=== PATIENT | female | born 1985 | race Hispanic/Latino ===

== ENCOUNTER 2018-07-14 08:41 | Inpatient (IN) | payer OTHER ==
--- OUTSIDE RECORDS SUMMARY | 2018-07-14 08:44 | XMS REPORT ---
:1985 Author Organization eClinicalWorks Care Team Providers Name Role Phone Henrry Levin Provider Role Unavailable Allergies, Adverse Reactions, Alerts Substance Reaction Event Type N.K.D.A. Info Not Available Non Drug Allergy Problems Problem Type Condition Code Onset Dates Condition Status Problem Obesity (BMI 30.0-34.9) E66.9 Active Problem Fertility testing Z31.41 Active Problem Well woman exam with routine Z01.419 Active gynecological exam Assessment Fertility testing Z31.41 Active Assessment Well woman exam with routine Z01.419 Active gynecological exam Assessment Obesity (BMI 30.0-34.9) E66.9 Active Medications Medication Code System Code Instructions Start Date End Date Status Dosage Clonazepam [facility] [id number] 1 MG Orally Once Active 1 tablet a day Results No Known Results Summary Purpose eClinicalWorks Submission
--- OUTSIDE RECORDS SUMMARY | 2018-07-14 08:44 | XMS REPORT ---
:1985 Author Organization eClinicalWorks Care Team Providers Name Role Phone Henrry Levin Provider Role Unavailable Allergies No Known Allergies Problems Problem Type Condition Code Onset Dates Condition Status Problem Obesity (BMI 30.0-34.9) E66.9 Active Problem Fertility testing Z31.41 Active Problem Well woman exam with routine Z01.419 Active gynecological exam Assessment Meconium aspiration in child of O09.292 Active prior , currently in second trimester Assessment Obesity affecting in O99.212 Active second trimester Assessment Supervision of high risk O09.92 Active in second trimester Assessment Low lying placenta NOS or without O44.42 Active hemorrhage, second trimester Problem Supervision of high risk O09.92 Active in second trimester Problem Obesity affecting in O99.212 Active second trimester Problem Low lying placenta NOS or without O44.42 Active hemorrhage, second trimester Problem BMI 31.0-31.9,adult Z68.31 Active Problem Encounter for supervision of Z34.91 Active low-risk in first trimester Problem Meconium aspiration in child of O09.292 Active prior , currently in second trimester Problem Encounter to determine O36.80X0 Active viability of , single or unspecified fetus Medications Medication Code Code Instructions Start End Status Dosage System Date Date CitraNatal [facility] 70609738120 35-1 & 300 MG Active as directed Assure Orally daily ND 27756554218 14-0.4 MG Orally Active 1 tablet Complete Once a day Results No Known Results Summary Purpose eClinicalWorks Submission
--- OUTSIDE RECORDS SUMMARY | 2018-07-14 08:44 | XMS REPORT ---
:1985 Author Organization eClinicalWorks Care Team Providers Name Role Phone Henrry Levin Provider Role Unavailable Allergies, Adverse Reactions, Alerts Substance Reaction Event Type N.K.D.A. Info Not Available Non Drug Allergy Problems Problem Type Condition Code Onset Dates Condition Status Assessment Encounter to determine O36.80X0 Active viability of , single or unspecified fetus Assessment Amenorrhea N91.2 Active Assessment Encounter for supervision of Z34.91 Active low-risk in first trimester Assessment BMI 31.0-31.9,adult Z68.31 Active Problem Encounter for supervision of Z34.91 Active low-risk in first trimester Problem Encounter to determine O36.80X0 Active viability of , single or unspecified fetus Problem BMI 31.0-31.9,adult Z68.31 Active Problem Obesity (BMI 30.0-34.9) E66.9 Active Problem Fertility testing Z31.41 Active Problem Well woman exam with routine Z01.419 Active gynecological exam Medications Medication Code System Code Instructions Start Date End Date Status Dosage Clonazepam [facility] [id number] 1 MG Orally Once Active 1 tablet a day Results Name Result Date Reference Range Unit Abnormality Flag URINALYSIS AUTO W/O SCOPE (47356) ----NIT neg 20171218 ----URO 0.2 20171218 ----PROTEIN 2+ 20171218 ----pH 5.5 20171218 ----BLO neg 20171218 ----GLUCOSE neg 20171218 ----JESSE TRACE 20171218 ----BILIRUBIN 1+ 20171218 ----KETONES neg 20171218 ----SPECIFIC GRAVITY 1.030 20171218 Summary Purpose eClinicalWorks Submission
--- OUTSIDE RECORDS SUMMARY | 2018-07-14 08:44 | XMS REPORT ---
[...] End Status Dosage System Date Date CitraNatal [facility] 80358678720 35-1 & 300 MG Active as directed Assure Orally daily ND 63507077618 14-0.4 MG Orally Active 1 tablet Complete Once a day Results No Known Results Summary Purpose eClinicalWorks Submission
--- OUTSIDE RECORDS SUMMARY | 2018-07-14 08:44 | XMS REPORT ---
:1985 Author Organization eClinicalWorks Care Team Providers Name Role Phone Henrry Levin Provider Role Unavailable Allergies No Known Allergies Problems Problem Type Condition Code Onset Dates Condition Status Problem Obesity (BMI 30.0-34.9) E66.9 Active Problem Fertility testing Z31.41 Active Problem Well woman exam with routine Z01.419 Active gynecological exam Problem Supervision of high risk O09.92 Active [...] of , single or unspecified fetus Medications No Known Medications Results No Known Results Summary Purpose better.inicalApropose Submission
--- OUTSIDE RECORDS SUMMARY | 2018-07-14 08:45 | XMS REPORT ---
:1985 Author Organization eClinicalWorks Care Team Providers Name Role Phone Henrry Levin Provider Role Unavailable Allergies No Known Allergies Problems Problem Type Condition Code Onset Dates Condition Status Problem Encounter to determine O36.80X0 Active viability of , single or unspecified fetus Problem BMI 31.0-31.9,adult Z68.31 Active Problem Encounter for supervision of Z34.91 Active low-risk in first trimester Problem Abnormal glucose affecting O99.810 Active Problem Supervision of high risk O09.93 Active in third trimester Problem Need for Tdap vaccination Z23 Active Problem Supervision of high risk O09.92 Active in second trimester Problem Obesity affecting in O99.212 Active second trimester Problem Low lying placenta NOS or without O44.42 Active hemorrhage, second trimester Problem Meconium aspiration in child of O09.292 Active prior , currently in second trimester Problem Obesity (BMI 30.0-34.9) E66.9 Active Problem Fertility testing Z31.41 Active Assessment Supervision of high risk O09.93 Active in third trimester Problem Well woman exam with routine Z01.419 Active gynecological exam Medications Medication Code Code Instructions Start End Status Dosage System Date Date [facility] 06058255415 14-0.4 MG Orally Active 1 tablet Complete Once a day CitraNatal [facility] 31026456472 35-1 & 300 MG Active as directed Assure Orally daily Results No Known Results Summary Purpose eClinicalWorks Submission
--- OUTSIDE RECORDS SUMMARY | 2018-07-14 08:45 | XMS REPORT ---
:1985 Author Organization eClinicalWorks Care Team Providers Name Role Phone Henrry Levin Provider Role Unavailable Allergies No Known Allergies Problems Problem Type Condition Code Onset Dates Condition Status Problem Obesity (BMI 30.0-34.9) E66.9 Active Problem Fertility testing Z31.41 Active Problem Well woman exam with routine Z01.419 Active gynecological exam Assessment Supervision of high risk O09.92 Active in second trimester Assessment Abnormal glucose tolerance test R73.09 Active (GTT) Problem Supervision of high risk O09.92 Active [...] Medications Results No Known Results Summary Purpose eClinicalWorks Submission
--- OUTSIDE RECORDS SUMMARY | 2018-07-14 08:45 | XMS REPORT ---
[...] Z34.91 Active low-risk in first trimester Problem Obesity (BMI 30.0-34.9) E66.9 Active Problem Fertility testing Z31.41 Active Problem Well woman exam with routine Z01.419 Active gynecological exam Problem Abnormal glucose affecting O99.810 Active Problem [...] Active prior , currently in second trimester Medications No Known Medications Results No Known Results Summary Purpose eClinicalWorks Submission
--- OUTSIDE RECORDS SUMMARY | 2018-07-14 08:45 | XMS REPORT ---
:1985 Author Organization eClinicalWorks Care Team Providers Name Role Phone Henrry Levni Provider Role Unavailable Allergies No Known Allergies [...]
--- OUTSIDE RECORDS SUMMARY | 2018-07-14 08:45 | XMS REPORT ---
[...] prior , currently in second trimester Assessment Need for Tdap vaccination Z23 Active Problem Obesity (BMI 30.0-34.9) E66.9 Active Assessment Abnormal glucose affecting O99.810 Active Problem Fertility testing Z31.41 Active Assessment Supervision of high risk O09.93 Active in third trimester Problem Well woman exam with routine Z01.419 Active gynecological exam Medications Medication Code Code Instructions Start End Status Dosage System Date Date [facility] 50182455123 14-0.4 MG Orally Active 1 tablet Complete Once a day CitraNatal [facility] 72360629252 35-1 & 300 MG Active as directed Assure Orally daily Results No Known Results Immunizations Vaccine Administration Date TDAP > 7 Years-Adacel May 15, 2018 Summary Purpose eClinicalWorks Submission
--- OUTSIDE RECORDS SUMMARY | 2018-07-14 08:45 | XMS REPORT ---
[...] trimester Problem Obesity (BMI 30.0-34.9) E66.9 Active Assessment Abnormal glucose affecting O99.810 Active Problem Fertility testing Z31.41 Active Assessment Supervision of high risk O09.93 Active in third trimester Problem Well woman exam with routine Z01.419 Active gynecological exam Medications Medication Code Code Instructions Start End Status Dosage System Date Date CitraNatal [facility] 17055899778 35-1 & 300 MG Active as directed Assure Orally daily [facility] 66218282960 14-0.4 MG Orally Active 1 tablet Complete Once a day Results No Known Results Summary Purpose eClinicalWorks Submission
--- OUTSIDE RECORDS SUMMARY | 2018-07-14 08:45 | XMS REPORT ---
[...] End Status Dosage System Date Date CitraNatal [facility] 62876942845 35-1 & 300 MG Active as directed Assure Orally daily [facility] 34934309013 14-0.4 MG Orally Active 1 tablet Complete Once a day Results No Known Results Summary Purpose eClinicalWorks Submission
[2018-07-14 09:07] VITALS: BMI 31.1
[2018-07-14] MEDS ORDERED: CARBOPROST TROME 250 MCG/ML IM PRN (09:32)
[2018-07-14] MEDS ORDERED: METHYLERGONOVINE 0.2MG/ML AMP IM PRN (09:32)
[2018-07-14] MEDS ORDERED: BUTORPHANOL 1 MG/ML INJ IV PRN (09:32)
[2018-07-14] MEDS ORDERED: Ringers Lactate 1,000 ML IV PRN (09:32)
[2018-07-14] MEDS ORDERED: PROMETHAZINE 25 MG/ML VIAL IV PRN ×2 (09:32)
[2018-07-14] MEDS ORDERED: Ringers Lactate 1,000 ML IV SCH (10:00)
[2018-07-14] MEDS ORDERED: OXYTOCIN/LR 20 UNIT/1,000 ML BAG IV SCH (10:00)
[2018-07-14 10:01] LABS: RPR Titer ND
[2018-07-14 10:03] LABS: Absolute Monocytes 0.4 K/uL (0.1-1.3); Basophils % 0.6 % (0-1.3); Eosinophils % 1.1 % (0-4.4); Hematocrit 35.3 % (36.0-45.0); MPV 8.9 fL (7.6-11.3); Monocytes % 3.8 % (3.3-12.3); RBC Red Blood Cell Count 4.19 M/uL (3.86-4.86)
[2018-07-14 10:09] LABS: Urine Appearance CLEAR; Urine Bilirubin NEGATIVE (NEG); Urine Blood NEGATIVE (NEG); Urine Color YELLOW; Urine Glucose NEGATIVE (NEG); Urine Protein TRACE (NEG); Urine Specific Gravity 1.025 (1.005-1.030); Urine Urobilinogen 0.2 mg/dL (0.2-1.0); Urine pH 5.5 (5.0-7.0)
[2018-07-14 10:24] LABS: Urine Microscopic Reflex ORDER UMIC
[2018-07-14 11:03] LABS: Urine Bacteria 20-50 /HPF (<20); Urine Culture Reflex Order REFLEXED; Urine Mucus 2+ /HPF (NONE SEEN)
[2018-07-14] MEDS ORDERED: METHYLERGONOVINE 0.2 MG TAB PO ONE (11:11)
[2018-07-14] MEDS ORDERED: ROPIVACAINE HCL 100 ML IV PRN (15:32)
[2018-07-14] MEDS ORDERED: ROPIVACAINE HCL 0.2% 20ML AMP IV ONE (15:34)
[2018-07-14] MEDS ORDERED: FENTANYL CITR 100 MCG/2 ML IV ONE (15:34)
--- NOTE | 2018-07-14 17:10 | P.OBGYNHP ---
Certification for Inpatient Patient admitted to: Inpatient With expected LOS: >2 Midnights Patient will require the following post-hospital care: None Practitioner: I am a practitioner with admitting privileges, knowledge of patient current condition, hospital course, and medical plan of care. Services: Services provided to patient in accordance with Admission requirements found in Title 42 Section 412.3 of the Code of Federal Regulations Patient History Date of Service: 07/14/18 Reason for admission: Spontaneous rupture of membranes History of Present Illness: Patient is a 33-year-old 2 para 1001 who presents at 38 weeks and 1 day gestation with spontaneous rupture membranes. Patient experienced rupture of membranes while at home this morning 7:15 a.m.. Patient had a gush of clear fluid. She denies contractions. No vaginal bleeding. Reports good movements. She has obtained care with [place] beginning at 9 weeks gestation. care has been complicated by obesity. She had a visit with the during for which in a ultrasound was performed and no issues were noted. Her last ultrasound was done here presents port with appropriate growth and no issues noted. She had noninvasive testing done which revealed low risk female fetus. She had an elevated 1 hr glucose screen for which a 3 hr was then performed and that was normal. See record for further details. Allergies Hydrocodone-Acetaminophen Adverse Reaction (Intermediate, Uncoded 07/14/18 12:53 ) Unknown Home Medications: Pnv Cmb#95/Ferrous Fumarate/FA [ Tablet] 1 each PO DAILY 07/14/18 - Past Medical/Surgical History Has patient received pneumonia vaccine in the past: No Diabetic: No Past Medical History: Patient denies medical history -: Vaginal delivery 2008 - Family History Mother -: Hypertension - Social History Smoking Status: Never smoker Alcohol use: No CD- Drugs: No Caffeine use: Yes Place of Residence: Home Review of Systems 10-point ROS is otherwise unremarkable Physical Examination - Vital Signs Temperature: 97.6 F Blood Pressure: 140/88 Pulse: 80 Respirations: 18 - General General: Alert, Oriented x3 HEENT: Atraumatic Neck: Supple Respiratory: Normal air movement Cardiovascular: No edema, Normal pulses Capillary refill: <2 Seconds Gastrointestinal: Other (Gravid) Musculoskeletal: No clubbing, No swelling Integumentary: No rashes, No breakdown Neurological: Normal gait, Normal speech - Female Pelvic Vagina: Normal, [place], Moist Cervix: Dilation (1 cm), Effacement (Long), station (-3) Uterus: Gravid Adnexa: Unable to evaluate - Obstetrics heart rate tracing: Category 2 Contractions: Frequency (Irregular) Amniotic membrane: SROM (Clear fluid) Laboratory Data (last 24 hrs) 07/14/18 09:45: WBC 10.6, Hgb 11.9 L, Hct 35.3 L, Plt Count 227 Assessment and Plan - Plan Caps patient is a 33-year-old 2 para 1001 who presents at 38 weeks and 1 day gestation with spontaneous rupture of membranes. Pitocin has been started for labor augmentation. Continuous maternal monitoring is being performed. Epidural placement at patient's request. Anticipate vaginal . GBS negative. Discharge Plan: Home Plan to discharge in: 72 Hours - Advance Directives Does patient have a Living Will: No Does patient have a Durable POA for Healthcare: No
[2018-07-14] MEDS ORDERED: DOCUSATE NA/SENNA CONC 1 TAB PO PRN (19:33)
[2018-07-14] MEDS ORDERED: Oxycodone HCl/Acetaminophen 1 TAB TAB PO PRN (19:33)
[2018-07-14] MEDS ORDERED: ONDANSETRON 4 MG (ODT) TAB PO PRN (19:33)
[2018-07-14] MEDS ORDERED: BISACODYL 10 MG RECTAL SUPP RECT PRN (19:33)
[2018-07-14] MEDS ORDERED: METHYLERGONOVINE 0.2 MG TAB PO PRN (19:33)
[2018-07-14] MEDS ORDERED: ACETAMINOPHEN 500 MG TAB PO PRN (19:33)
--- NOTE | 2018-07-14 19:39 | P.OP ---
Date of Service: 07/14/18 Findings and Operative Technique Patient delivered a viable female in cephalic presentation on 07/14/18 at _19:15. No nuchal cord. Infant was delivered in BRANDON position. Once was delivered the nose and mouth were suctioned with a suction bulb. Cord was clamped and cut. Infant was placed on the mother's abdomen for skin to skin bonding. Cord blood was then obtained. Placenta was then delivered with gentle traction. Placenta was examined and noted to be intact. Attention was then turned to the perineum which was n oted to have a superficial laceration at the introitus. This was repaired with a 3.0 vicryl in a simple stitch. Following delivery both mom and baby are doing well. APGARS are __9/9_. Weight was found to be __6lb 12 ounces. EBL was 100 cc.
[2018-07-14] MEDS: IBUPROFEN 200 MG TAB PO PRN (21:09)
[2018-07-15 00:42] LABS: RPR (Rapid Plasma Reagin) NON-REACT (NON-REACT)
[2018-07-15 06:00] LABS: Absolute Lymphocytes (CBC) 2.7 K/uL (0.7-4.9); Absolute Monocytes 0.9 K/uL (0.1-1.3); Absolute Neutrophil 11.9 K/uL (1.8-8.0); Basophils % 0.5 % (0-1.3); Eosinophils % 0.8 % (0-4.4); Hematocrit 34.7 % (36.0-45.0); Lymphocytes % 17.4 % (15.3-44.8); MPV 9.2 fL (7.6-11.3); RBC Red Blood Cell Count 4.16 M/uL (3.86-4.86)
[2018-07-15] MEDS: IBUPROFEN 200 MG TAB PO PRN (11:59)
[2018-07-15 20:55] VITALS: BP 134/81; TEMP 98.1
[2018-07-17 03:32] LABS: HBsAG Nonreactive (Nonreactive)
== END 2018-07-15 21:55 | disposition home or self-care (01) | DRG 807 ==
LOC: 2ND-WC 08:41
PROVIDERS: ADMIT Student in an Organized Health Care Education/Training Program; ATTEND Student in an Organized Health Care Education/Training Program
PROC: 10E0XZZ Delivery of Products of Conception, External Approach (ICD-10-PCS; principal; 2018-07-14)
PROC: 0UQGXZZ Repair Vagina, External Approach (ICD-10-PCS; 2018-07-14)
DX: O71.4 Obstetric high vaginal laceration alone (principal); Z37.0 Single live birth; Z3A.38 38 weeks gestation of pregnancy
CPT/HCPCS: 36415; 81003; 81015; 85025; 86592; 86850; 86900; 86901; 87086; 87088; 87340; J0595; J2210; J2550; J2590; J2795; J3010